=== PATIENT | female | born 1995 | race Native Hawaiian/Other Pacific Islander ===

== ENCOUNTER 2018-06-30 09:58 | Outpatient (CLI) | payer OTHER ==
[~2018-06-30 09:58] MED LIST: ALLEGRA ALRG180 M1 PO
== END 2018-06-30 22:10 | disposition home or self-care (01) ==
LOC: RAD 09:58
DX: M54.12 Radiculopathy, cervical region (principal)

== ENCOUNTER 2018-11-06 13:24 | Outpatient (CLI) | payer OTHER | END 2018-11-06 19:36 | disposition home or self-care (01) | LOC: MRI 13:24 | DX: M54.12 Radiculopathy, cervical region (principal) ==

== ENCOUNTER 2021-03-07 08:54 | Outpatient (CLI) | payer BC, OTHER | END 2021-03-07 21:08 | disposition home or self-care (01) | LOC: RAD 08:54 | PROVIDERS: ATTEND Nurse Practitioner Family | DX: Z01.818 Encounter for other preprocedural examination (principal) ==

== ENCOUNTER → 2021-03-22 | Outpatient (CLI) | payer BC, OTHER | LOC: LABW 22:04 | PROVIDERS: ATTEND Nurse Practitioner Family | DX: Z01.818 Encounter for other preprocedural examination (principal) | CPT/HCPCS: 81025 ==

== ENCOUNTER 2021-11-23 08:54 | Outpatient (CLI) | payer BC, OTHER | END 2021-11-23 19:56 | disposition home or self-care (01) | LOC: US 08:54 | PROVIDERS: ATTEND Nurse Practitioner Family | DX: R10.13 Epigastric pain (principal); R14.0 Abdominal distension (gaseous); R11.0 Nausea ==